=== PATIENT | female | born 1955 | race Caucasian/White ===

== ENCOUNTER 2023-05-06 12:48 | Emergency (ER) | payer MEDICARE, BC, SELFPAY ==
[2023-05-06 12:58] VITALS: BP 118/68; PULSE 59; RESP 15; TEMP 36.8; O2SAT 99; BMI 18.8
[2023-05-06 13:26] LABS: Add Manual Diff / Slide Review NO; Basophils Absolute Auto 0 /uL (0-100); Basophils Percent Auto 0.6 % (0-2); Eosinophils Absolute Auto 100 /uL (0-450); Eosinophils Percent Auto 0.9 % (2-4); Hemoglobin 13.3 g/dL (12.0-16.0); Lymphocytes Absolute Auto 1400 /uL (1100-4500); Lymphocytes Percent Auto 17.5 % (25-40); Monocytes Absolute Auto 500 /uL (0-900); Monocytes Percent Auto 6.3 % (3-14); Neutrophils Absolute Auto 6000 /uL (1500-7000); Neutrophils Percent Auto 74.7 % (50-75); Platelet Count 249 X10^3/uL (150-400); Red Blood Cell Count 4.15 X10^6/uL (4.0-5.2); Red Cell Distribution Width 13.5 % (11.6-14.8); White Blood Cell Count 8.1 X10^3/uL (4.5-11.0)
[2023-05-06 13:37] LABS: Alanine Aminotransferase 20 IU/L (<35); Albumin 4.1 g/dL (3.5-5.0); Albumin Globulin Ratio 1.3 (1.0-2.8); Alkaline Phosphatase 34 U/L (38-126); Aspartate Aminotransferase 28 IU/L (14-36); BUN Creatinine Ratio 17.9 (6-22); Bilirubin Total 0.5 mg/dL (0.2-1.3); Blood Urea Nitrogen 12 mg/dL (7-17); Carbon Dioxide 30 mmol/L (22-32); Chloride 102 mmol/L (98-107); Estimated Glomerular Filt Rate > 60 mL/min (>60); Globulin 3.1 g/dL (1.7-4.1); Glucose 97 mg/dL (80-110); HEMOLYSIS 26 (0-50); Lipase 113 U/L (23-300); Sodium 137 mmol/L (137-145); Total Protein 7.2 g/dL (6.3-8.2)
[2023-05-06 15:48] VITALS: BP 115/75; RESP 20; O2SAT 100
--- NOTE | 2023-05-06 15:48 | ED.ABDPAIN ---
HPI - Abdominal Pain <Miles Miranda PA-C - Last Filed: 05/06/23 16:10> General Chief Complaint: Abdominal Pain Stated Complaint: [facility] right Time Seen by Provider: 05/06/23 15:43 Source: patient Mode of arrival: Ambulatory History of Present Illness HPI narrative: 67-year-old female with past medical history hypothyroidism presents to the ED with 4-5 days of abdominal pain. Patient states that the pain is sometimes in the lower right versus some other times when it is on the right lower quadrant. Patient describes the pain as very similar to menstrual cramps and that it is intermittent. Patient denies any vaginal bleeding or discharge. Patient endorses intermittent fevers, chills. Patient denies nausea, vomiting, chest pain, shortness of breath, dysuria, flank pain, lightheadedness, dizziness, syncope, diarrhea, hematochezia, melena. Last bowel movement was today which was normal. Related Data Home Medications Medication Instructions Recorded Confirmed alendronate 70 mg tablet (Fosamax) 70 mg PO QWEEK 05/07/21 05/07/21 levothyroxine 100 mcg capsule 100 mcg PO DAILY 05/07/21 05/07/21 Previous Rx's Medication Instructions Recorded amoxicillin 875 mg-potassium 1 tab PO BID 7 days #14 tabs 05/09/23 clavulanate 125 mg tablet Allergies Allergy/AdvReac Type Severity Reaction Status Date / Time No Known Drug Allergies Allergy Verified 05/09/23 11:19 Review of Systems <Miles Miranda PA-C - Last Filed: 05/06/23 16:10> Review of Systems ROS Unobtainable: All systems reviewed & are unremarkable except as noted in HPI and below Constitutional Constitutional: Reports chills, Denies fatigue, Reports fever(s), Denies frequent falls, Denies lethargy and Denies weakness Eyes Eyes: Denies change in vision, Denies eye discharge, Denies irritation and Denies loss of vision ENT Ears, Nose, Mouth, and Throat: Denies change in voice, Denies dizziness, Denies neck pain, Denies sore throat and Denies throat swelling Cardiovascular Cardiovascular: Denies chest pain, Denies irregular heart rhythm, Denies lightheadedness, Denies palpitations, Denies dyspnea, Denies dyspnea on exertion and Denies orthopnea Respiratory Respiratory: Denies cough, Denies dyspnea, Denies dyspnea on exertion and Denies wheezing Gastrointestinal Gastrointestinal: Reports abdominal pain, Denies change in bowel habits, Denies diarrhea, Denies nausea and Denies vomiting Genitourinary Genitourinary: Denies hematuria, Denies flank pain, Denies urinary incontinence and Denies urinary urgency Musculoskeletal Musculoskeletal: Denies back pain, Denies muscle weakness, Denies neck pain, Denies numbness and Denies tingling Integumentary/Breasts Skin/Breast: Denies pruritus, Denies erythema, Denies rash and Denies wounds Neurologic Neurologic: Denies behavioral changes, Denies confusion, Denies dizziness, Denies frequent falls, Denies loss of vision, Denies numbness, Denies tingling and Denies weakness Psychiatric Psychiatric: Denies anxiety, Denies behavioral changes, Denies confusion, Denies depression, Denies homicidal ideation and Denies suicidal ideation Endocrine Endocrine: Denies fatigue, Denies flushing and Denies palpitations Hematologic/Lymphatic Hematologic/Lymphatic: Denies easy bruising Allergic/Immunologic Allergic/Immunologic: Denies urticaria, Denies throat swelling and Denies wheezing Patient History <Miles Miranda PA-C - Last Filed: 05/06/23 16:10> Social History (Reviewed 05/09/23 @ 11:43 by Gail Espinoza [facility]) Smoking Status: Unknown if ever smoked Smoking Status: Unknown if ever smoked alcohol intake frequency: 0-2 drinks per day Substance Use Type: marijuana Exam <Miles Miranda PA-C - Last Filed: 05/06/23 16:10> Narrative Exam Narrative: Const General:?cooperative, healthy appearing and comfortable [facility] Head:?normal to inspection Ears:?hearing grossly normal bilaterally Nose:?external nose normal Face and sinus:?normal facial exam and sinuses nontender Mouth:?oral mucosae normal Throat:?posterior oropharynx normal Eyes General:?appearance normal, both eyes and all related structures Neck Neck:?normal visual inspection and no lymphadenopathy noted Resp Effort & Inspection:?normal respiratory effort Auscultation:?clear to auscultation bilaterally Cardio Rate:?regular rate Rhythm:?regular rhythm GI Abdomen is soft, nondistended. Tender to palpation in the left lower quadrant. There is no CVA tenderness. Neuro General:?patient alert, patient awake and patient oriented x3 Initial Vital Signs Initial Vital Signs: Vital Signs Temperature 98.2 F 05/06/23 12:58 Pulse Rate 59 L 05/06/23 12:58 Respiratory Rate 15 05/06/23 12:58 Blood Pressure 118/68 05/06/23 12:58 Pulse Oximetry 99 05/06/23 12:58 Oxygen Delivery Method Room Air 05/06/23 12:58 <Parvin Chacon DO - Last Filed: 05/13/23 23:10> Initial Vital Signs Initial Vital Signs: Vital Signs Temperature 98.2 F 05/06/23 12:58 Pulse Rate 59 L 05/06/23 12:58 Respiratory Rate 15 05/06/23 12:58 Blood Pressure 118/68 05/06/23 12:58 Pulse Oximetry 99 05/06/23 12:58 Oxygen Delivery Method Room Air 05/06/23 12:58 Course <LAWSON Abraham Last Filed: 05/06/23 16:10> Orders Ordered: ED Orders 05/06/23 13:01 EKG-12 Lead Stat 05/06/23 13:15 Complete Blood Count AUTO DIFF Stat Comprehensive Metabolic Panel Stat Lipase Stat 05/06/23 15:54 CT abdomen pelvis w con Stat Vital Signs Vital signs: Vital Signs - 8 hr 05/06/23 12:58 05/06/23 15:48 Temperature 98.2 F Pulse Rate 59 L Respiratory Rate 15 20 Blood Pressure 118/68 115/75 Pulse Oximetry 99 100 Oxygen Delivery Method Room Air Room Air <Parvin Chacon DO - Last Filed: 05/13/23 23:10> Orders Ordered: ED Orders 05/06/23 13:01 EKG-12 Lead Stat 05/06/23 13:15 Complete Blood Count AUTO DIFF Stat Comprehensive Metabolic Panel Stat Lipase Stat 05/06/23 15:54 CT abdomen pelvis w con Stat Vital Signs Vital signs: Vital Signs - 8 hr 05/06/23 12:58 05/06/23 15:48 Temperature 98.2 F Pulse Rate 59 L Respiratory Rate 15 20 Blood Pressure 118/68 115/75 Pulse Oximetry 99 100 Oxygen Delivery Method Room Air Room Air MDM - Abdominal Pain <LAWSON Abraham Last Filed: 05/06/23 16:10> Lab Data 05/06/23 13:15 05/06/23 13:15 Labs: Lab Results 05/06/23 05/06/23 Range/Units 13:15 13:15 WBC 8.1 (4.5-11.0) X10^3/uL RBC 4.15 (4.0-5.2) X10^6/uL Hgb 13.3 (12.0-16.0) g/dL Hct 39.0 (36-46) % MCV 94.0 (80-100) fL MCH 32.0 (26-34) PG MCHC 34.0 (30-36) % RDW 13.5 (11.6-14.8) % Plt Count 249 (150-400) X10^3/uL Neut % (Auto) 74.7 (50-75) % Lymph % (Auto) 17.5 L (25-40) % Eagle % (Auto) 6.3 (3-14) % Eos % (Auto) 0.9 L (2-4) % Baso % (Auto) 0.6 (0-2) % Neut # (Auto) 6000 (7539-0137) /uL Lymph # (Auto) 1400 (3553-8291) /uL Eagle # (Auto) 500 (0-900) /uL Eos # (Auto) 100 (0-450) /uL Baso # (Auto) 0 (0-100) /uL Sodium 137 (137-145) mmol/L Potassium 4.0 (3.4-5.1) mmol/L Chloride 102 (98-107) mmol/L Carbon Dioxide 30 (22-32) mmol/L BUN 12 (7-17) mg/dL Creatinine 0.67 (0.52-1.04) mg/dL Estimated GFR > 60 (>60) mL/min BUN/Creatinine Ratio 17.9 (6-22) Glucose 97 (80-110) mg/dL Calcium 9.0 (8.4-10.2) mg/dL Total Bilirubin 0.5 (0.2-1.3) mg/dL AST 28 (14-36) IU/L ALT 20 (<35) IU/L Alkaline Phosphatase 34 L (38-126) U/L Total Protein 7.2 (6.3-8.2) g/dL Albumin 4.1 (3.5-5.0) g/dL Globulin 3.1 (1.7-4.1) g/dL Albumin/Globulin Ratio 1.3 (1.0-2.8) Lipase 113 (23-300) U/L Point of care testing: Urine Dip Bedside Urine Glucose Negative Bedside Urine Bilirubin - Negative Bedside Urine Ketone +/- 5 Urine Specific [place] 1.015 Bedside Urine Occult Blood - Negative Bedside Urine pH 6.5 Bedside Urine Protein - Negative Bedside Urine Urobilinogen - Negative Bedside Urine Nitrite - Negative Bedside Urine Leukocytes - Negative Esterase MDM Narrative Medical decision making narrative: 67-year-old female with past medical history hypothyroidism presents to the ED with 4-5 days of abdominal pain. Concern for diverticulitis versus appendicitis versus constipation versus other intra-abdominal pathology versus other. Obtained labs, UA. Labs within normal limits, UA without UTI. On physical exam, patient was tender to palpation in the left lower quadrant. Will obtain CT abdomen pelvis for further characterization. Patient declined CT abdomen pelvis, stating that she had an appointment to get back to and that she would monitor her symptoms and return to the ED if she had worsening symptoms. Counseled patient on the dangers of leaving against medical advice including the risk of infection, perforation, . Patient verbalized understanding. Medical records reviewed: Yes <Parvin Chacon DO - Last Filed: 05/13/23 23:10> Lab Data Labs: Lab Results 05/06/23 05/06/23 Range/Units 13:15 13:15 WBC 8.1 (4.5-11.0) X10^3/uL RBC 4.15 (4.0-5.2) X10^6/uL Hgb 13.3 (12.0-16.0) g/dL Hct 39.0 (36-46) % MCV 94.0 (80-100) fL MCH 32.0 (26-34) PG MCHC 34.0 (30-36) % RDW 13.5 (11.6-14.8) % Plt Count 249 (150-400) X10^3/uL Neut % (Auto) 74.7 (50-75) % Lymph % (Auto) 17.5 L (25-40) % Eagle % (Auto) 6.3 (3-14) % Eos % (Auto) 0.9 L (2-4) % Baso % (Auto) 0.6 (0-2) % Neut # (Auto) 6000 (1465-2392) /uL Lymph # (Auto) 1400 (9724-5640) /uL Eagle # (Auto) 500 (0-900) /uL Eos # (Auto) 100 (0-450) /uL Baso # (Auto) 0 (0-100) /uL Sodium 137 (137-145) mmol/L Potassium 4.0 (3.4-5.1) mmol/L Chloride 102 (98-107) mmol/L Carbon Dioxide 30 (22-32) mmol/L BUN 12 (7-17) mg/dL Creatinine 0.67 (0.52-1.04) mg/dL Estimated GFR > 60 (>60) mL/min BUN/Creatinine Ratio 17.9 (6-22) Glucose 97 (80-110) mg/dL Calcium 9.0 (8.4-10.2) mg/dL Total Bilirubin 0.5 (0.2-1.3) mg/dL AST 28 (14-36) IU/L ALT 20 (<35) IU/L Alkaline Phosphatase 34 L (38-126) U/L Total Protein 7.2 (6.3-8.2) g/dL Albumin 4.1 (3.5-5.0) g/dL Globulin 3.1 (1.7-4.1) g/dL Albumin/Globulin Ratio 1.3 (1.0-2.8) Lipase 113 (23-300) U/L Point of care testing: Urine Dip Bedside Urine Glucose Negative Bedside Urine Bilirubin - Negative Bedside Urine Ketone +/- 5 Urine Specific [place] 1.015 Bedside Urine Occult Blood - Negative Bedside Urine pH 6.5 Bedside Urine Protein - Negative Bedside Urine Urobilinogen - Negative Bedside Urine Nitrite - Negative Bedside Urine Leukocytes - Negative Esterase ECG Data Interpretation: Ines-sinus rhythm rate 56 OR interval 192 QRS [address] changes no priors to compare Discharge Plan Departure Patient Disposition: Left Against Medical Advice Clinical Impression: Abdominal pain Activity Restrictions/Additional Instructions: You were evaluated in the ED today for abdominal pain. Your labs and urine were normal. Given that you are tender in your abdomen, it was recommended that you have a CT scan for further evaluation. However, it appears that you have a conflicting appointment that you have to leave for and have declined the CT. You are leaving against medical advice, and we discussed the dangers of not completing the evaluation including infection, perforation, . Please return to the ED if you have worsening symptoms. Prescriptions: No Action levothyroxine 100 mcg capsule 100 mcg PO DAILY alendronate [Fosamax] 70 mg tablet 70 mg PO QWEEK amoxicillin-pot clavulanate 875-125 mg tablet 1 tab PO BID 7 Days Qty: 14 0RF Stand Alone Forms: Against Medical Advice <Parvin Chacon DO - Last Filed: 05/13/23 23:10> Cosign ED Attending Cosalexisature Attestation: I was immediately available in the department for consultation. Documentation has been reviewed.
== END 2023-05-06 16:07 | disposition left against medical advice (07) ==
PROVIDERS: Emergency Medicine; Emergency Provider Student in an Organized Health Care Education/Training Program
DX: R10.30 Lower abdominal pain, unspecified (principal); Z53.29 Procedure and treatment not carried out because of patient's decision for other reasons
CPT/HCPCS: 80053; 81003; 83690; 85025; 93005; 99282; 99283

== ENCOUNTER 2023-05-09 11:07 | Emergency (ER) | payer MEDICARE, BC, SELFPAY ==
[2023-05-09 11:16] VITALS: BP 134/58; PULSE 62; RESP 18; TEMP 36.6; O2SAT 99; BMI 18.8
--- NOTE | 2023-05-09 11:38 | DI.CT.S_ITS ---
PROCEDURE: CT ABDOMEN PELVIS W CON INDICATIONS: Lower abdominal pain, LLQ tenderness to palpation, bowel vs TECHNIQUE: After the administration of intravenous contrast, axial sections acquired from the lung bases to the pubic symphysis. Coronal and sagittal reformats were performed. For radiation dose reduction, the following was used: automated exposure control, adjustment of mA and/or kV according to patient size. COMPARISON: None. FINDINGS: Image quality: Excellent. Lung bases: Unremarkable. Heart: No significant findings. ABDOMEN: Liver: Unremarkable. Gallbladder: Unremarkable. Biliary ducts: Unremarkable. Pancreas: Unremarkable. Spleen: Unremarkable. Adrenal Glands: Unremarkable. Kidneys and Ureters: Unremarkable. Stomach and Bowel: Stomach, small bowel loops, and colon are unremarkable. The appendix is enlarged, measuring 9 mm, but demonstrates no evidence of surrounding inflammation. Peritoneum: No abnormal intraperitoneal fluid. No free air. Ventral Wall: No hernias. Abdominal Nodes: No retroperitoneal or mesenteric adenopathy by size criteria. Vessels: Aorta and inferior vena cava are normal in size. PELVIS: Pelvic Organs: Calcified uterine masses are present. Bladder: Unremarkable. Pelvic Nodes: No enlarged lymph nodes. Miscellaneous: No hernias are seen. Bones: Unremarkable. IMPRESSION: 1. The appendix is enlarged, but demonstrates no surrounding inflammatory changes, which may represent normal variation. Close clinical follow-up with repeat imaging (if clinically warranted) is recommended to exclude mild/early appendicitis. 2. Uterine fibroids. Dictated by: Golide Rosas M.D. on 05/09/2023 at 13:06 Approved by: Goldie Rosas M.D. on 05/09/2023 at 13:09
--- NOTE | 2023-05-09 11:42 | ED_ITS ---
HPI - Abdominal Pain <REGGIE Soares - Last Filed: 05/09/23 13:26> General Chief Complaint: Abdominal Pain Stated Complaint: was here T-2 and left , ABD pain and low fever Time Seen by Provider: 05/09/23 11:25 Source: patient Mode of arrival: Ambulatory History of Present Illness HPI narrative: This is a 67-year-old female who returns in the emergency department with ongoing lower abdominal pain which has migrated from her right lower quadrant to the left lower quadrant and is tender to palpation. She states that a couple of days ago when she was in the emergency department she had to leave and was not able to have her CT completed and so she came back today since her symptoms have persisted and she denies having any urinary complaints. She denies any stool changes, endorses nausea 2 days ago when her pain started, states it started in the suprapubic region, was on the right lower quadrant now is on the left lower quadrant but states it is low quadrant/pelvic region. Denies any back pain or flank pain. Endorses having low-grade fever for 2 days prior to today. Denies dysuria, urinary frequency or urgency, denies any hematuria. Related Data Home Medications Medication Instructions Recorded Confirmed alendronate 70 mg tablet (Fosamax) 70 mg PO QWEEK 05/07/21 05/07/21 levothyroxine 100 mcg capsule 100 mcg PO DAILY 05/07/21 05/07/21 Previous Rx's Medication Instructions Recorded amoxicillin 875 mg-potassium 1 tab PO BID 7 days #14 tabs 05/09/23 clavulanate 125 mg tablet Allergies Allergy/AdvReac Type Severity Reaction Status Date / Time No Known Drug Allergies Allergy Verified 05/09/23 11:19 Review of Systems <REGGIE Soares - Last Filed: 05/09/23 13:26> Review of Systems ROS Unobtainable: All systems reviewed & are unremarkable except as noted in HPI and below Patient History <REGGIE Soares - Last Filed: 05/09/23 13:26> Social History Smoking Status: Unknown if ever smoked Smoking Status: Unknown if ever smoked alcohol intake frequency: 0-2 drinks per day Substance Use Type: marijuana Exam <REGGIE Soares - Last Filed: 05/09/23 13:26> Narrative Exam Narrative: Reviewed vitals signs and nursing notes. General: Pleasant, sitting upright, in no acute distress, well groomed, afebrile HEENT: symmetrical facial expressions, moist mucous membranes, neck is supple CV: regular rate and rhythm, warm extremities Respiratory: normal work of breathing, without tachypnea or hypoxia. GI: abdomen soft, nondistended, without CVA tenderness bilaterally, left pelvic tenderness to palpation, mild suprapubic tenderness MSK: moves all extremities, no weakness, normal tone, ambulatory without deficit Skin: brisk capillary refill, without rash or wound Neuro: clear speech and normal cognition, A&O x3, GCS 15, no focal motor or sensation deficits Initial Vital Signs Initial Vital Signs: Vital Signs Temperature 97.9 F 05/09/23 11:16 Pulse Rate 62 05/09/23 11:16 Respiratory Rate 18 05/09/23 11:16 Blood Pressure 134/58 L 05/09/23 11:16 Pulse Oximetry 99 05/09/23 11:16 Oxygen Delivery Method Room Air 05/09/23 11:16 <Alexey Arreguin DO - Last Filed: 05/09/23 17:40> Initial Vital Signs Initial Vital Signs: Vital Signs Temperature 97.9 F 05/09/23 11:16 Pulse Rate 62 05/09/23 11:16 Respiratory Rate 18 05/09/23 11:16 Blood Pressure 134/58 L 05/09/23 11:16 Pulse Oximetry 99 05/09/23 11:16 Oxygen Delivery Method Room Air 05/09/23 11:16 Course <REGGIE Soares - Last Filed: 05/09/23 13:26> Orders Ordered: ED Orders 05/09/23 11:38 CT abdomen pelvis w con Stat 05/09/23 11:47 Urine Culture Stat Urine Microscopic Stat 05/09/23 11:50 CBC Auto Diff [Complete Blood Count AUTO DIFF] Stat CMP [Comprehensive Metabolic Panel] Stat Lipase Stat Discontinued Medications Amoxicillin/Clavulanate Potassium (Amoxicillin/Clav 875/125 Mg) 1 tab PO NOW ONE Stop: 05/09/23 13:20 Last Admin: 05/09/23 13:23 Dose: 1 tab Documented By: JAMAL Vital Signs Vital signs: Vital Signs - 8 hr 05/09/23 11:16 Temperature 97.9 F Pulse Rate 62 Respiratory Rate 18 Blood Pressure 134/58 L Pulse Oximetry 99 Oxygen Delivery Method Room Air <Alexey Arreguin DO - Last Filed: 05/09/23 17:40> Orders Ordered: ED Orders 05/09/23 11:38 CT abdomen pelvis w con Stat 05/09/23 11:47 Urine Culture Stat Urine Microscopic Stat 05/09/23 11:50 CBC Auto Diff [Complete Blood Count AUTO DIFF] Stat CMP [Comprehensive Metabolic Panel] Stat Lipase Stat Discontinued Medications Amoxicillin/Clavulanate Potassium (Amoxicillin/Clav 875/125 Mg) 1 tab PO NOW ONE Stop: 05/09/23 13:20 Last Admin: 05/09/23 13:23 Dose: 1 tab Documented By: JAMAL Vital Signs Vital signs: Vital Signs - 8 hr 05/09/23 11:16 Temperature 97.9 F Pulse Rate 62 Respiratory Rate 18 Blood Pressure 134/58 L Pulse Oximetry 99 Oxygen Delivery Method Room Air MDM - Abdominal Pain <REGGIE Soares - Last Filed: 05/09/23 13:26> Lab Data 05/09/23 11:50 05/09/23 11:50 Labs: Lab Results 05/09/23 05/09/23 05/09/23 Range/Units 11:47 11:50 11:50 WBC 4.6 (4.5-11.0) X10^3/uL RBC 4.33 (4.0-5.2) X10^6/uL Hgb 13.9 (12.0-16.0) g/dL Hct 40.2 (36-46) % MCV 92.8 (80-100) fL MCH 32.0 (26-34) PG MCHC 34.5 (30-36) % RDW 13.2 (11.6-14.8) % Plt Count 284 (150-400) X10^3/uL Neut % (Auto) 57.8 (50-75) % Lymph % (Auto) 31.3 (25-40) % [place] % (Auto) 7.9 (3-14) % Eos % (Auto) 1.6 L (2-4) % Baso % (Auto) 1.4 (0-2) % Neut # (Auto) 2700 (5661-7611) /uL Lymph # (Auto) 1400 (6061-7837) /uL [place] # (Auto) 400 (0-900) /uL Eos # (Auto) 100 (0-450) /uL Baso # (Auto) 100 (0-100) /uL Sodium 136 L (137-145) mmol/L Potassium 4.4 (3.4-5.1) mmol/L Chloride 103 (98-107) mmol/L Carbon Dioxide 30 (22-32) mmol/L BUN 13 (7-17) mg/dL Creatinine 0.67 (0.52-1.04) mg/dL Estimated GFR > 60 (>60) mL/min BUN/Creatinine Ratio 19.4 (6-22) Glucose 85 (80-110) mg/dL Calcium 9.2 (8.4-10.2) mg/dL Total Bilirubin 0.4 (0.2-1.3) mg/dL AST 29 (14-36) IU/L ALT 22 (<35) IU/L Alkaline Phosphatase 38 (38-126) U/L Total Protein 7.3 (6.3-8.2) g/dL Albumin 4.1 (3.5-5.0) g/dL Globulin 3.2 (1.7-4.1) g/dL Albumin/Globulin Ratio 1.3 (1.0-2.8) Lipase 145 (23-300) U/L Urine RBC None seen (0-5/HPF) Urine WBC 1-5/hpf (0-5/HPF) Ur Squamous Epith Cells 1-5 /hpf (0-5/HPF) Ur Transition Epith Cell 1-5/hpf (0-5/HPF) Urine Bacteria Occasional (0-1) (None) Ur Culture Indicated? Specimen cultured Point of care testing: Urine Dip Bedside Urine Glucose Negative Bedside Urine Bilirubin - Negative Bedside Urine Ketone - Negative Urine Specific [place] 1.010 Bedside Urine Occult Blood - Negative Bedside Urine pH 6.5 Bedside Urine Protein - Negative Bedside Urine Urobilinogen - Negative Bedside Urine Nitrite - Negative Bedside Urine Leukocytes +++ [address] scan - abdomen/pelvis: Radiologist's Impression: Counts include 234 beds at the [facility] [place] [id number] Scan Report Signed Patient: Milena Anderson MR#: [id number] : 1955 Acct:[id number] Age/Sex: 67 / F Date of Service: 05/09/23 Loc: ED Accession Number: [id number] ?? Procedure: CT abdomen pelvis w con Ordering Provider: Gail Espinoza PROCEDURE:? CT ABDOMEN PELVIS W CON ? INDICATIONS:? Lower abdominal pain, LLQ tenderness to palpation, bowel vs ? TECHNIQUE:? After the administration of intravenous contrast, axial sections acquired from the lung bases to the pubic symphysis.? Coronal and sagittal reformats were performed.? For radiation dose reduction, the following was used:? automated exposure control, adjustment of mA and/or kV according to patient size.? ? COMPARISON:? None. ? FINDINGS:? Image quality:? Excellent.? ? Lung bases:? Unremarkable. Heart:? No significant findings. ? ABDOMEN: Liver:? Unremarkable.? ? Gallbladder:? Unremarkable.? ? Biliary ducts:? Unremarkable.? ? Pancreas:? Unremarkable.? ? Spleen:? Unremarkable.? ? Adrenal Glands:? Unremarkable.? ? Kidneys and Ureters:? Unremarkable.? ? ? Stomach and Bowel:? Stomach, small bowel loops, and colon are unremarkable.? The appendix is enlarged, measuring 9 mm, but demonstrates no evidence of surrounding inflammation. Peritoneum:? No abnormal intraperitoneal fluid.? No free air.? ? Ventral Wall: ? No hernias.? Abdominal Nodes:? No retroperitoneal or mesenteric adenopathy by size criteria.? Vessels:? Aorta and inferior vena cava are normal in size.? ? PELVIS: Pelvic Organs:? Calcified uterine masses are present. Bladder:? Unremarkable.? ? Pelvic Nodes: No enlarged lymph nodes.? Miscellaneous: No hernias are seen. ? ? ? Bones:? Unremarkable.? IMPRESSION:? 1. The appendix is enlarged, but demonstrates no surrounding inflammatory changes, which may represent normal variation.? Close clinical follow-up with repeat imaging (if clinically warranted) is recommended to exclude mild/early appendicitis. 2. Uterine fibroids.? ? ? Dictated by: Goldie Rosas M.D. on 05/09/2023 at 13:06 ? ? Approved by: Goldie Rosas M.D. on 05/09/2023 at 13:09 ? MDM Narrative Medical decision making narrative: Chief Complaint: pelvic/LLQ pain Multiple etiologies for patient's complaint considered including, but not limited to: Urinary tract infection, nephrolithiasis, appendicitis, div erticulitis, ovarian torsion, uterine fibroid, endometrial/ovarian mass, bowel obstruction, perforated this I have independently reviewed the patient's vital signs and nursing notes as well as prior records if available. Plan: UA, repeat lab work, CT scan, patient wishes for full evaluation today since she has tenderness or left lower quadrant. Urine dip is positive for +500 leukocytes, will send for micro and culture Patient's EKG from 2 days ago does not show changes, normal sinus rhythm without ectopy. No history of cardiac disease. Patient's lab work is reassuring, there is no leukocytosis or anemia, there is obstipation on CT, her urine dip showed a large amount of leukocytes and the microscopy only showed small bacteria and WBCs. She had mild suprapubic tenderness to palpation but no other urinary symptoms including urgency or frequency. Patient's previous visit showed lymphopenia and today her lymphocyte count is normal She denies the need for pain medication Since I dipped her urine and it immediately turned positive for leukocytes, I will treat her for UTI with Augmentin hoping to cover her for early appendicitis as well. She understands return to the emergency department for worsening pain, fever, chills, vomiting, stool changes, or other concerning symptom. She was given a copy of her CT results and encouraged to have repeat imaging if her pain is ongoing. Social considerations that may affect disposition: none Questions are addressed and there is agreement with the plan and for follow-up. I consulted with the ED attending physician Dr. Arreguin as needed for higher level of care considerations and they were available for discussion and recommendations regarding plan of care and diagnostic testing. Patient is appropriate for outpatient management. <Alexey Arreguin, DO - Last Filed: 05/09/23 17:40> Lab Data Labs: Lab Results 05/09/23 05/09/23 05/09/23 Range/Units 11:47 11:50 11:50 WBC 4.6 (4.5-11.0) X10^3/uL RBC 4.33 (4.0-5.2) X10^6/uL Hgb 13.9 (12.0-16.0) g/dL Hct 40.2 (36-46) % MCV 92.8 (80-100) fL MCH 32.0 (26-34) PG MCHC 34.5 (30-36) % RDW 13.2 (11.6-14.8) % Plt Count 284 (150-400) X10^3/uL Neut % (Auto) 57.8 (50-75) % Lymph % (Auto) 31.3 (25-40) % [place] % (Auto) 7.9 (3-14) % Eos % (Auto) 1.6 L (2-4) % Baso % (Auto) 1.4 (0-2) % Neut # (Auto) 2700 (4252-1673) /uL Lymph # (Auto) 1400 (7820-4468) /uL [place] # (Auto) 400 (0-900) /uL Eos # (Auto) 100 (0-450) /uL Baso # (Auto) 100 (0-100) /uL Sodium 136 L (137-145) mmol/L Potassium 4.4 (3.4-5.1) mmol/L Chloride 103 (98-107) mmol/L Carbon Dioxide 30 (22-32) mmol/L BUN 13 (7-17) mg/dL Creatinine 0.67 (0.52-1.04) mg/dL Estimated GFR > 60 (>60) mL/min BUN/Creatinine Ratio 19.4 (6-22) Glucose 85 (80-110) mg/dL Calcium 9.2 (8.4-10.2) mg/dL Total Bilirubin 0.4 (0.2-1.3) mg/dL AST 29 (14-36) IU/L ALT 22 (<35) IU/L Alkaline Phosphatase 38 (38-126) U/L Total Protein 7.3 (6.3-8.2) g/dL Albumin 4.1 (3.5-5.0) g/dL Globulin 3.2 (1.7-4.1) g/dL Albumin/Globulin Ratio 1.3 (1.0-2.8) Lipase 145 (23-300) U/L Urine RBC None seen (0-5/HPF) Urine WBC 1-5/hpf (0-5/HPF) Ur Squamous Epith Cells 1-5 /hpf (0-5/HPF) Ur Transition Epith Cell 1-5/hpf (0-5/HPF) Urine Bacteria Occasional (0-1) (None) Ur Culture Indicated? Specimen cultured Point of care testing: Urine Dip Bedside Urine Glucose Negative Bedside Urine Bilirubin - Negative Bedside Urine Ketone - Negative Urine Specific [place] 1.010 Bedside Urine Occult Blood - Negative Bedside Urine pH 6.5 Bedside Urine Protein - Negative Bedside Urine Urobilinogen - Negative Bedside Urine Nitrite - Negative Bedside Urine Leukocytes +++ 500 Esterase Discharge Plan Departure Patient Disposition: Home Clinical Impression: Urinary tract infection Instructions: DI for Urinary Tract Infection (UTI) Activity Restrictions/Additional Instructions: *You have been diagnosed with a urinary tract infection as well as this ED showed that your appendix is enlarged but does not show any abnormal findings, inflammation, perforation or enlarged lymph nodes. Your lab work is reassuring. Please message your primary care provider and let them know about your CT scan showing enlarged appendix without appendicitis and if you continue to have pain, please have another CT scan completed when that pain progresses. This ant ibiotic will treat GI And urinary tract infections, and hopefully if this is early appendicitis, hopefully this will treat it. It does show that you have uterine fibroids but I do not expect them to cause you pain. Hopefully start getting better soon, this antibiotic may give you loose stool. If your pain progresses or if you have a fever again, please come back for a repeat CT scan. Your lab work does not show an elevated white blood cell count or any concerning findings of infection so I hope this is mild and partially resolving already. *What to do: *Please continue to take your regular medications as directed. [x ] New medication prescriptions sent to your pharmacy: [Leisa Paez] [ ] New medication written as a paper prescription [ ] No new medications given *Please call and schedule follow up with your primary care provider in 2-3 days, at least for an update. Let them know you were seen in the Emergency Department for the above problem. We will electronically transmit a record of today's note if your PCP or specialist is in our system. *If you do not have a primary care provider please contact [phone] to establish care with one of the [facility] primary care providers. *Return to the Emergency Department for worsening symptoms, inability to keep liquids down, fever greater than 101F, chills, or other concerning symptom. Prescriptions: New amoxicillin-pot clavulanate 875-125 mg tablet 1 tab PO BID 7 Days Qty: 14 0RF No Action levothyroxine 100 mcg capsule 100 mcg PO DAILY alendronate [Fosamax] 70 mg tablet 70 mg PO QWEEK Referrals: Miscellaneous,Doctor, MD [Primary Care Provider] - Stand Alone Forms: Patient Portal/API <Alexey Arreguin DO - Last Filed: 05/09/23 17:40> Cosign ED Attending Carloyn Attestation: I was immediately available in the department for consultation. Documentation has been reviewed. I agree with assessment and plan.
[2023-05-09 11:58] LABS: Bacteria Urine Occasional (0-1); Culture Indicated Urine Specimen Cultured; RBC Urine None Seen (0-5/HPF); Squamous Epithelial Cell Urine 1-5 /HPF (0-5/HPF); Transitional Epi Cells Urine 1-5/HPF (0-5/HPF); WBC Urine 1-5/HPF (0-5/HPF)
[2023-05-09 11:59] LABS: Add Manual Diff / Slide Review NO; Basophils Absolute Auto 100 /uL (0-100); Basophils Percent Auto 1.4 % (0-2); Eosinophils Absolute Auto 100 /uL (0-450); Eosinophils Percent Auto 1.6 % (2-4); Hematocrit 40.2 % (36-46); Hemoglobin 13.9 g/dL (12.0-16.0); Lymphocytes Absolute Auto 1400 /uL (1100-4500); Lymphocytes Percent Auto 31.3 % (25-40); Mean Corpuscular HGB Conc 34.5 % (30-36); Mean Corpuscular Volume 92.8 fL (80-100); Monocytes Absolute Auto 400 /uL (0-900); Monocytes Percent Auto 7.9 % (3-14); Neutrophils Absolute Auto 2700 /uL (1500-7000); Neutrophils Percent Auto 57.8 % (50-75); Platelet Count 284 X10^3/uL (150-400); Red Blood Cell Count 4.33 X10^6/uL (4.0-5.2); Red Cell Distribution Width 13.2 % (11.6-14.8); White Blood Cell Count 4.6 X10^3/uL (4.5-11.0)
[2023-05-09 12:10] LABS: Alanine Aminotransferase 22 IU/L (<35); Albumin 4.1 g/dL (3.5-5.0); Albumin Globulin Ratio 1.3 (1.0-2.8); Alkaline Phosphatase 38 U/L (38-126); Aspartate Aminotransferase 29 IU/L (14-36); BUN Creatinine Ratio 19.4 (6-22); Bilirubin Total 0.4 mg/dL (0.2-1.3); Blood Urea Nitrogen 13 mg/dL (7-17); Calcium 9.2 mg/dL (8.4-10.2); Carbon Dioxide 30 mmol/L (22-32); Chloride 103 mmol/L (98-107); Estimated Glomerular Filt Rate > 60 mL/min (>60); Globulin 3.2 g/dL (1.7-4.1); Glucose 85 mg/dL (80-110); HEMOLYSIS < 15 (0-50); Lipase 145 U/L (23-300); Potassium 4.4 mmol/L (3.4-5.1); Sodium 136 mmol/L (137-145); Total Protein 7.3 g/dL (6.3-8.2)
[2023-05-09] MEDS: AMOXICILLIN/CLAV 875/125 MG 1 TAB PO (13:23)
== END 2023-05-09 13:29 | disposition home or self-care (01) ==
PROVIDERS: Emergency Provider Nurse Practitioner Critical Care Medicine
DX: N39.0 Urinary tract infection, site not specified (principal)
CPT/HCPCS: 36415; 74177; 80053; 81003; 81015; 83690; 85025; 87086; 99284